=== PATIENT | female | born 1985 | race Caucasian/White ===

== ENCOUNTER 2024-03-29 07:48 | Outpatient (CLI) | payer OTHER, SELFPAY | END 2024-03-29 07:49 | disposition home or self-care (01) | PROVIDERS: PCP Nurse Practitioner Family; Visit Provider Nurse Practitioner Family | DX: E78.5 Hyperlipidemia, unspecified (principal); E11.65 Type 2 diabetes mellitus with hyperglycemia; R53.83 Other fatigue; Z79.4 Long term (current) use of insulin; Z13.29 Encounter for screening for other suspected endocrine disorder | CPT/HCPCS: 80053; 80061; 82043; 82570; 82607; 84443; 85025 ==

== ENCOUNTER 2024-08-19 10:24 | Outpatient (CLI) | payer OTHER, SELFPAY ==
--- NOTE | 2024-09-09 09:07 | W.PM.SLEEP ---
Sleep Study Details Details Interpreting Provider: Chandan Date of Sleep Study: 08/19/24 Sleep Study Details: STUDY TYPE:? Full none attended ? BMI:? 40.6 ORDERING PROVIDER:Mathew Maldonado INDICATION:? Concern about sleep apnea ? SLEEP SUMMARY:? 604 minutes monitored RESPIRATORY SUMMARY:? AHI 31.6, low oxygen 83, 0.7% of study oxygen less than 90%, snoring 90.4% PERIODIC LIMB MOVEMENTS OF SLEEP:? Not recorded CARDIAC:? Range 59-118, mean 78.1 beats per minute IMPRESSION:? Severe obstructive sleep apnea RECOMMENDATION: Treatment options include CPAP or BiPAP. Weight loss is recommended
== END 2024-08-19 10:25 | disposition home or self-care (01) ==
PROVIDERS: PCP Nurse Practitioner Family; Visit Provider Nurse Practitioner Family
DX: G47.33 Obstructive sleep apnea (adult) (pediatric) (principal)
CPT/HCPCS: 95806

== ENCOUNTER 2024-11-04 08:11 | Outpatient (CLI) | payer OTHER, SELFPAY ==
--- NOTE | 2024-11-04 08:15 | CRLHL7_ITS ---
For Patients: As a result of the Century Cures Act, medical imaging exams and procedure reports are released immediately into your electronic medical record. You may view this report before your referring provider. If you have questions, please contact your health care provider. BILATERAL SCREENING MAMMOGRAM WITH COMPUTER-AIDED DETECTION AND TOMOSYNTHESIS TECHNIQUE: CC and MLO views were obtained. These mammographic images have been obtained using full-field digital technique. These mammographic images were interpreted with the benefit of computer-aided detection. Breast Tomosynthesis was used in this interpretation. COMPARISON FILM: Baseline. FINDINGS: There are scattered areas of fibroglandular density IMPRESSION: There is no radiographic evidence for malignancy. ASSESSMENT: BI-RADS Category 1: Negative RECOMMENDATION: Routine screening mammogram in 1 year. A lay language report of this examination will be provided to the patient. Vladimir Singleton M.D. Diagnostic Radiologist [email or web address] Transcribed: 3:26 [email or web address] [email or web address] by: Vladimir Singleton MD @ 11/05/2024 11:38:00 AM (Electronically Signed)
== END 2024-11-04 08:12 | disposition home or self-care (01) ==
LOC: MAMMO 08:12
PROVIDERS: PCP Nurse Practitioner Family; Visit Provider Nurse Practitioner Family
DX: Z12.31 Encounter for screening mammogram for malignant neoplasm of breast (principal)
CPT/HCPCS: 77063; 77067

== ENCOUNTER 2025-03-31 10:17 | Outpatient (CLI) | payer OTHER, SELFPAY | END 2025-03-31 10:18 | disposition home or self-care (01) | PROVIDERS: PCP Nurse Practitioner Family; Visit Provider Nurse Practitioner Family | DX: E78.5 Hyperlipidemia, unspecified (principal); E55.9 Vitamin D deficiency, unspecified; R53.83 Other fatigue; E11.40 Type 2 diabetes mellitus with diabetic neuropathy, unspecified; N91.2 Amenorrhea, unspecified; G62.9 Polyneuropathy, unspecified; Z79.4 Long term (current) use of insulin | CPT/HCPCS: 80053; 80061; 82043; 82306; 82570; 82607; 84443; 87522 ==

== ENCOUNTER 2025-04-23 10:01 | Outpatient (CLI) | payer OTHER, SELFPAY ==
[2025-04-23 12:40] LABS: Bacterial Vaginosis* Negative (Negative); Candida glab/krus NOT DETECTED (No Detected); Candida species DETECTED (No Detected); Trichomonas vaginalis NOT DETECTED (No Detected)
[2025-04-23 13:11] LABS: Chlamydia DNA Amplified* NOT DETECTED (No Detected); GC DNA Amplified* NOT DETECTED (No Detected)
[2025-04-25 02:30] LABS: HPV Source Cervix; HPV, High Risk by TMA Not Detected
== END 2025-04-23 10:02 | disposition home or self-care (01) ==
PROVIDERS: PCP Nurse Practitioner Family; Visit Provider Registered Nurse
DX: Z11.3 Encounter for screening for infections with a predominantly sexual mode of transmission (principal); Z12.4 Encounter for screening for malignant neoplasm of cervix; Z11.51 Encounter for screening for human papillomavirus (HPV)
CPT/HCPCS: 81513; 87481; 87491; 87591; 87624; 87625; 87661; 88141; 88142

== ENCOUNTER 2025-04-28 09:16 | Outpatient (CLI) | payer OTHER, SELFPAY | END 2025-04-28 09:17 | disposition home or self-care (01) | LOC: KYNREF 09:17 | PROVIDERS: PCP Nurse Practitioner Family; Visit Provider Nurse Practitioner Family | DX: E11.40 Type 2 diabetes mellitus with diabetic neuropathy, unspecified (principal) | CPT/HCPCS: 82728 ==

== ENCOUNTER 2025-05-01 07:14 | Outpatient (CLI) | payer OTHER, SELFPAY ==
--- NOTE | 2025-05-01 07:15 | CRLHL7_ITS ---
For Patients: As a result of the Century Cures Act, medical imaging exams and procedure reports are released immediately into your electronic medical record. You may view this report before your referring provider. If you have questions, please contact your health care provider. INDICATION: Skin paresthesias. COMPARISON: 04/22/2025. Technique Sagittal T1, T2, and STIR sequences. Axial T2/gradient sequences. FINDINGS: Straightening of the normal cervical lordosis. Normal vertebral body facet alignment. No fractures. No vertebral body loss of height. No spondylolisthesis. No ligamentous injury. No suspicious osseous lesions. Normal cord signal. No intradural mass or lesion. C1-2: No spinal canal narrowing. C2-3: No spinal canal or neural foraminal narrowing. C3-4: No narrowing of the spinal canal. Uncovertebral joint hypertrophy results in mild narrowing of the left neural foramen. No narrowing of the right neural foramen. C4-5: Mild disc degeneration posterior disc bulge. No narrowing of the spinal canal. Mild narrowing of the bilateral foramina. C5-6: Mild disc degeneration posterior disc bulge. No narrowing of spinal canal. Uncovertebral joint hypertrophy results in moderate narrowing of bilateral foramina. C6-7: Mild disc generation posted disc bulge. No narrowing of spinal canal. No neural foraminal narrowing. C7-T1: No spinal canal or neural foraminal narrowing. No spinal canal neural foramina narrowing in the visualized upper thoracic spine. IMPRESSION: 1. Straightening of the normal cervical lordosis. 2. Otherwise normal alignment. No fractures 3. Normal cord signal. 4. At C3-4, mild narrowing of the left neural foramen 5. At C4-5, mild narrowing of the bilateral neural foramina 6. At C5-6, moderate narrowing of the bilateral neural foramina 7. No spinal canal or neural foraminal narrowing at the remaining levels Dictated by Miguelito Green MD @ 05/01/2025 12:24:35 PM (Electronically Signed)
== END 2025-05-01 07:15 | disposition home or self-care (01) ==
LOC: MRI 07:14
PROVIDERS: PCP Nurse Practitioner Family; Visit Provider Nurse Practitioner Family
DX: R20.2 Paresthesia of skin (principal); M50.90 Cervical disc disorder, unspecified, unspecified cervical region; M50.21 Other cervical disc displacement, high cervical region; M50.221 Other cervical disc displacement at C4-C5 level; M50.222 Other cervical disc displacement at C5-C6 level
CPT/HCPCS: 72141

== ENCOUNTER 2025-08-11 09:56 | Outpatient (CLI) | payer OTHER, SELFPAY | END 2025-08-11 09:57 | disposition home or self-care (01) | LOC: KYNREF 09:58 | PROVIDERS: PCP Nurse Practitioner Family; Visit Provider Nurse Practitioner Family | DX: R82.90 Unspecified abnormal findings in urine (principal); E55.9 Vitamin D deficiency, unspecified; R53.83 Other fatigue | CPT/HCPCS: 80076 ==